=== PATIENT | female | born 1995 | race Caucasian/White ===

== ENCOUNTER 2021-02-26 22:08 | Emergency (ER) | payer BC ==
[2021-02-26] MEDS ORDERED: Ondansetron 4 MG Tab.DIS PO ONE (22:47)
[2021-02-26] MEDS ORDERED: Acetaminophen 325 MG Tab PO ONE (22:50)
--- NOTE | 2021-02-26 22:50 | EDM.PDOC ---
ED HPI GENERAL MEDICAL PROBLEM - General Chief Complaint: Fever Stated Complaint: SECOND COVID VACCINE, HIGH FEVER Time Seen by Provider: 02/26/21 22:38 Source of Information: Reports: Patient History Limitations: Reports: No Limitations - History of Present Illness INITIAL COMMENTS - FREE TEXT/NARRATIVE: Patient is a 25-year-old female who presents today for fever. Patient dates that she received her second call vaccine Materna yesterday and since that time she has had chills intermittently homeless right 105. Simply he was hunting 1 patient not take any Tylenol Motrin before arrival. Patient also reported some nausea but denies any actual vomiting is able to keep water down. Patient denies any chest pain abdominal pain urinary symptoms or other complaints. - Related Data Allergies Allergy/AdvReac Type Severity Reaction Status Date / Time Penicillins Allergy Unknown Other Verified 10/17/15 14:25 Home Meds: Home Meds Doxycycline [Vibramycin] tab PO DAILY 10/17/15 [History] Past Medical History - Past Surgical History HEENT Surgical History: Reports: Adenoidectomy, Naso-Sinus Surgery, Tonsillectomy Musculoskeletal Surgical History: Reports: Other (See Below) ED ROS GENERAL - Review of Systems Review Of Systems: See Below Constitutional: Reports: Fever HEENT: Reports: No Symptoms Respiratory: Reports: No Symptoms Cardiovascular: Reports: No Symptoms Endocrine: Reports: No Symptoms GI/Abdominal: Reports: No Symptoms : Reports: No Symptoms Musculoskeletal: Reports: No Symptoms Skin: Reports: No Symptoms Neurological: Reports: No Symptoms Psychiatric: Reports: No Symptoms Hematologic/Lymphatic: Reports: No Symptoms Immunologic: Reports: No Symptoms ED EXAM, GENERAL - Physical Exam Exam: See Below Exam Limited By: No Limitations General Appearance: Alert, WD/WN, No Apparent Distress Respiratory/Chest: No Respiratory Distress, Lungs Clear, Normal Breath Sounds Cardiovascular: Normal Peripheral Pulses, Regular Rate, Rhythm GI/Abdominal: Normal Bowel Sounds, Soft, Non-Tender Extremities: Normal Inspection, Normal Range of Motion Neurological: Alert, Oriented, CN II-XII Intact, Normal Cognition, Normal Gait Skin Exam: Warm Course - Vital Signs Last Recorded V/S: Last Vital Signs Temp 99.5 F 02/27/21 00:23 Pulse 90 02/27/21 00:23 Resp 18 02/27/21 00:23 BP 116/76 02/27/21 00:23 Pulse Ox 97 02/27/21 00:23 - Orders/Labs/Meds Labs: Laboratory Tests 02/26/21 02/26/21 02/26/21 Range/Units 22:58 22:58 22:58 WBC 4.11 (4.0-11.0) K/uL RBC 4.32 (4.30-5.90) M/uL Hgb 13.7 (12.0-16.0) g/dL Hct 40.1 (36.0-46.0) % MCV 92.8 (80.0-98.0) fL MCH 31.7 (27.0-32.0) pg MCHC 34.2 (31.0-37.0) g/dL RDW Std Deviation 42.7 (28.0-62.0) fl RDW Coeff of Taj 13 (11.0-15.0) % Plt Count 214 (150-400) K/uL MPV 10.30 (7.40-12.00) fL Neut % (Auto) 55.2 (48.0-80.0) % Lymph % (Auto) 29.4 (16.0-40.0) % Faulk % (Auto) 14.4 (0.0-15.0) % Eos % (Auto) 0.5 (0.0-7.0) % Baso % (Auto) 0.5 (0.0-1.5) % Neut # (Auto) 2.3 (1.4-5.7) K/uL Lymph # (Auto) 1.2 (0.6-2.4) K/uL Faulk # (Auto) 0.6 (0.0-0.8) K/uL Eos # (Auto) 0.0 (0.0-0.7) K/uL Baso # (Auto) 0.0 (0.0-0.1) K/uL Nucleated RBC % 0.0 /100WBC Nucleated RBCs # 0 K/uL Sodium 138 (136-145) mmol/L Potassium 3.7 (3.5-5.1) mmol/L Chloride 104 (98-107) mmol/L Carbon Dioxide 25.1 (21.0-32.0) mmol/L BUN 7 (7.0-18.0) mg/dL Creatinine 0.8 (0.6-1.0) mg/dL Est Cr Clr Drug Dosing 105.45 mL/min Estimated GFR (MDRD) > 60.0 ml/min Glucose 116 H (74-106) mg/dL Calcium 8.5 (8.5-10.1) mg/dL HCG, Qual NEGATIVE (NEG) Urine Color Urine Appearance Urine pH (5.0-8.0) Ur Specific [place] (1.001-1.035) Urine Protein (NEGATIVE) mg/dL Urine Glucose (UA) (NEGATIVE) mg/dL Urine Ketones (NEGATIVE) mg/dL Urine Occult Blood (NEGATIVE) Urine Nitrite (NEGATIVE) Urine Bilirubin (NEGATIVE) Urine Urobilinogen (<2.0) EU/dL Ur Leukocyte Esterase (NEGATIVE) Urine RBC (0-2/HPF) Urine WBC (0-5/HPF) Ur Epithelial Cells (NONE-FEW) Urine Bacteria (NEGATIVE) 02/26/21 Range/Units 22:59 WBC (4.0-11.0) K/uL RBC (4.30-5.90) M/uL Hgb (12.0-16.0) g/dL Hct (36.0-46.0) % MCV (80.0-98.0) fL MCH (27.0-32.0) pg MCHC (31.0-37.0) g/dL RDW Std Deviation (28.0-62.0) fl RDW Coeff of Taj (11.0-15.0) % Plt Count (150-400) K/uL MPV (7.40-12.00) fL Neut % (Auto) (48.0-80.0) % Lymph % (Auto) (16.0-40.0) % Faulk % (Auto) (0.0-15.0) % Eos % (Auto) (0.0-7.0) % Baso % (Auto) (0.0-1.5) % Neut # (Auto) (1.4-5.7) K/uL Lymph # (Auto) (0.6-2.4) K/uL Faulk # (Auto) (0.0-0.8) K/uL Eos # (Auto) (0.0-0.7) K/uL Baso # (Auto) (0.0-0.1) K/uL Nucleated RBC % /100WBC Nucleated RBCs # K/uL Sodium (136-145) mmol/L Potassium (3.5-5.1) mmol/L Chloride (98-107) mmol/L Carbon Dioxide (21.0-32.0) mmol/L BUN (7.0-18.0) mg/dL Creatinine (0.6-1.0) mg/dL Est Cr Clr Drug Dosing mL/min Estimated GFR (MDRD) ml/min Glucose (74-106) mg/dL Calcium (8.5-10.1) mg/dL HCG, Qual (NEG) Urine Color YELLOW Urine Appearance SLT CLOUDY Urine pH 7.5 (5.0-8.0) Ur Specific [place] 1.015 (1.001-1.035) Urine Protein NEGATIVE (NEGATIVE) mg/dL Urine Glucose (UA) NEGATIVE (NEGATIVE) mg/dL Urine Ketones NEGATIVE (NEGATIVE) mg/dL Urine Occult Blood LARGE H (NEGATIVE) Urine Nitrite NEGATIVE (NEGATIVE) Urine Bilirubin NEGATIVE (NEGATIVE) Urine Urobilinogen 0.2 (<2.0) EU/dL Ur Leukocyte Esterase NEGATIVE (NEGATIVE) Urine RBC 55-60 (0-2/HPF) Urine WBC 0-1 (0-5/HPF) Ur Epithelial Cells FEW (NONE-FEW) Urine Bacteria RARE (NEGATIVE) Meds: Medications Discontinued Medications Generic Name Dose Route Start Last Admin Trade Name Lacy PRN Reason Stop Dose Admin Acetaminophen 650 mg 02/26/21 22:50 02/26/21 22:57 Acetaminophen 325 Mg Tab PO 02/26/21 22:51 650 mg NOW ONE Administration Ondansetron HCl 4 mg 02/26/21 22:47 02/26/21 22:58 Ondansetron 4 Mg Tab.Dis PO 02/26/21 22:48 4 mg ONETIME ONE Administration - Re-Assessments/Exams Free Text/Narrative Re-Assessment/Exam: 02/27/21 00:15 Patient UA review shows no infection. Patient and x-ray does not show anything obvious large pneumonia. The Internet is down and images cannot be sent to the radiologist for reading. Patient understands this and we will call if there is any concerning findings on the CT. Departure - Departure Time of Disposition: 00:16 Disposition: Home, Self-Care 01 Condition: Good Clinical Impression: Viral illness - Discharge Information *PRESCRIPTION DRUG MONITORING PROGRAM REVIEWED*: Not Applicable *COPY OF PRESCRIPTION DRUG MONITORING REPORT IN PATIENT SAUL: Not Applicable Instructions: Viral Illness, Adult, Fever, Adult, [id number] Referrals: Teresa Lr NP [Primary Care Provider] - Forms: ED Department Discharge Additional Instructions: The following information is given to patients seen in the emergency department who are being discharged to home. This information is to outline your options for follow-up care. We provide all patients seen in our emergency department with a follow-up referral. The need for follow-up, as well as the timing and circumstances, are variable depending upon the specifics of your emergency department visit. If you don't have a primary care physician on staff, we will provide you with a referral. We always advise you to contact your personal physician following an emergency department visit to inform them of the circumstance of the visit and for follow-up with them and/or the need for any referrals to a consulting specialist. The emergency department will also refer you to a specialist when appropriate. This referral assures that you have the opportunity for follow-up care with a specialist. All of these measure are taken in an effort to provide you with optimal care, which includes your follow-up. Under all circumstances we always encourage you to contact your private physician who remains a resource for coordinating your care. When calling for follow-up care, please make the office aware that this follow-up is from your recent emergency room visit. If for any reason you are refused follow-up, please contact the [facility] Emergency Department at and asked to speak to the emergency department charge nurse. Please follow up with your primary care physician. If you do not have a primary care physician, see below: [facility] [address] [place] [id number] [facility] [address] [place] [id number] He was seen today for fever at the regular vaccine. We did a work-up and did not show any findings to what your fever may be caused by. Fever is likely related to a virus that should improve on his own. Recommend you stay home stay hydrated drink lots of fluids and take Tylenol as needed for your fever. You have any other concerning signs or symptoms or did not improve in the next 3 to 5 days please return to ED. Sepsis Event Note (ED) - Evaluation Sepsis Screening Result: Possible Sepsis Risk - Focused Exam Vital Signs: Vital Signs Temp Temp Pulse Resp BP Pulse Ox 02/27/21 00:23 99.5 F 90 18 116/76 97 02/26/21 22:57 101 F H 02/26/21 22:30 101.1 F H 97 14 132/86 100 - Assessment/Plan Plan: Patient is a 25-year-old female who presents today for fever and nausea. Patient had a recent Covid vaccine. Patient has no source of fever. Will obtain x-ray labs and UA and reassess.
[2021-02-26 23:17] LABS: BLOOD UREA NITROGEN,BUN 7 mg/dL (7.0-18.0); CARBON DIOXIDE,CO2 25.1 mmol/L (21.0-32.0); CHLORIDE,CL 104 mmol/L (98-107); GLUCOSE RANDOM 116 mg/dL (74-106); POTASSIUM,K 3.7 mmol/L (3.5-5.1); SODIUM,NA 138 mmol/L (136-145)
[2021-02-27 00:24] VITALS: BP 116/76; PULSE 90
--- NOTE | 2021-02-27 00:32 | CR ---
INDICATION: Fever status post COVID-19 vaccination TECHNIQUE: Chest radiograph 1 view COMPARISON: 08/18/2015 FINDINGS: Mediastinum: The mediastinum is normal in appearance. The heart silhouette is normal in size and morphology. Lung: Both lungs are unremarkable in appearance. No sign of pleural effusion seen. No pneumothorax is identified. Bone and Soft tissue: Unremarkable for age. IMPRESSION: 1. No acute cardiopulmonary disease is seen. Dictated by: Stanford Foss MD @ 02/27/2021 00:31:33 (Electronically Signed)
== END 2021-02-27 00:25 | disposition home or self-care (01) ==
LOC: MW.ED 22:08
DX: B34.9 Viral infection, unspecified (principal)
CPT/HCPCS: 36415; 71045; 80048; 81001; 84703; 85025; 99283; A9270

== ENCOUNTER 2021-10-11 11:30 | Emergency (ER) | payer BC ==
[2021-10-11] MEDS ORDERED: Ondansetron 4 MG/2 ML SDV IVPUSH ONE (11:48)
[2021-10-11] MEDS ORDERED: Sodium Chloride 0.9% 1,000 ML IV ONE (11:48)
[2021-10-11 12:23] LABS: BLOOD UREA NITROGEN,BUN 5 mg/dL (7.0-18.0); CARBON DIOXIDE,CO2 23.4 mmol/L (21.0-32.0); CHLORIDE,CL 100 mmol/L (98-107); GLUCOSE RANDOM 95 mg/dL (74-106); SODIUM,NA 136 mmol/L (136-145)
--- NOTE | 2021-10-11 12:39 | EDM.PDOC ---
ED HPI GENERAL MEDICAL PROBLEM - General Chief Complaint: [employer]ENTICE Problem Stated Complaint: VOMITING,13 WKS Time Seen by Provider: 10/11/21 11:35 Source of Information: Reports: Patient History Limitations: Reports: No Limitations - History of Present Illness INITIAL COMMENTS - FREE TEXT/NARRATIVE: HISTORY AND PHYSICAL: History of present illness: Patient is a 25-year-old female who presents to the ED today with concerns of nausea and vomiting in . She is 13 weeks , , P:[address] Nagel being her OBGYN. She states she does have Zofran at home which she uses frequently, although did not seem to work today. She did call the [employer] hotline and they recommended she come to the emergency room for IV fluids. Patient denies any related concerns such as vaginal bleeding or cramping. Patient has had a confirmed IUP with ultrasound. Patient denies any fever, chills, headache, change in vision, syncope or near syncope. Denies any chest pain, back pain, shortness of breath or cough. Denies any abdominal pain, diarrhea, constipation or dysuria. Has not noted any blood in urine or stool. Patient has been eating and drinking appropriately. No recent travel or sick contacts. Review of systems: As per history of present illness and below otherwise all systems reviewed and negative. Past medical history: As per history of present illness and as reviewed below otherwise noncontributory. Surgical history: As per history of present illness and as reviewed below otherwise noncontributory. Social history: See social history for further information Family history: As per history of present illness and as reviewed below otherwise noncontributory. Physical exam: General: Well developed and well nourished. Alert and orientated x 3. Nontoxic in appearance and in no acute distress. Vital signs are stable and have been reviewed by me. Nursing notes were reviewed. HEENT: Atraumatic, normocephalic, pupils equal and reactive bilaterally, negative for conjunctival pallor or scleral icterus, mucous membranes moist, TMs normal bilaterally, throat clear, neck supple, nontender, trachea midline. No drooling or trismus noted. No meningeal signs. No hot potato voice noted. Lungs: Clear to auscultation bilaterally. No wheezes, rales, or rhonchi. Chest nontender. Normal work of breathing, no accessory muscles used. Heart: S1S2, regular rate and rhythm without overt murmur, gallops, or rubs. No JVD. No peripheral edema Abdomen: Soft, nondistended, nontender. Normoactive bowel sounds. Negative for masses or costovertebral tenderness. Skin: Intact, warm, dry. No lesions or rashes noted. Hematologic: No petechiae or purpra. Mucosa appropriate color and normal nail bed color and refill. Extremities: Atraumatic, moves all extremities per self without difficulty or deficits, negative for cords or calf pain. Neurovascular unremarkable. Neuro: Awake, alert, oriented. Cranial nerves II through XII unremarkable. Cerebellum unremarkable. Motor and sensory unremarkable throughout. Exam nonfocal. Psychiatric: Mood and affect are appropriate. Normal thought process. Answering questions appropriately. Please note that the patient was seen and evaluated during the 2019 SARS-CoV-2 novel coronavirus pandemic period. Community viral transmission is ongoing at time of this encounter and the emergency department is operating under pandemic response procedures. Medical Decision Making: Patient is a 25-year-old female who is 13 weeks gestation with concerns of nausea and vomiting in . She states she does have Zofran at home although did not seem to work today. She did call the [employer] hotline and they recommended she come to the emergency room for IV fluids. Patient denies any related concerns such as vaginal bleeding or cramping. We will do basic lab work and give her fluids with Zofran. If the Zofran is not helping we we will call VARNISHER APPRENTICE for their recommendations. Patient does have some bacteria in her urine we will treat with antibiotics. Spoke with Dr. Stevenson, VARNISHER APPRENTICE on-call for [facility] who states she did talk to the patient earlier today. We will give her a few Phenergan suppositories for home to have on hand in case the nausea and vomiting should return. She does have Zofran available to her as well which had worked well in the past. I have talked with the patient about today's findings, in addition to providing specific details for plan of care. Reassessment at the time of disposition demonstrates that the patient is in no acute distress. The patient is stable for discharge, counseling was provided and we discussed in great detail signs and symptoms that would prompt them to return to the Emergency Department. Medication, follow up and supportive care measures were reviewed and discussed. Voices understanding and is agreeable to plan of care. Denies any further questions or concerns at this time. Diagnostics: CBC, CMP, UA Therapeutics: IV fluid, Zofran Prescription: None Impression: Nausea and vomiting in Plan: 1. You were evaluated today on an emergent basis. Your urine shows an early UTI. Increase fluids and take medication as prescribed. 2. You can alternate Tylenol as needed for pain and fever management. Zofran and/or Phenergan rectal suppository as needed for nausea. 3. We encourage you to follow up with your OBGYN for re-evaluation and further care/management. 4. If your symptoms should worsen, new symptoms develop or any of the signs and symptoms we discussed should arise please return to the emergency room or call 911 (if needed). Definitive disposition and diagnosis as appropriate pending reevaluation and review of above. - Related Data Allergies Allergy/AdvReac Type Severity Reaction Status Date / Time Penicillins Allergy Unknown Other Verified 10/11/21 11:43 Home Meds: Home Meds Promethazine [Phenergan] 25 mg RECTAL Q6H PRN #8 supp.rect 10/11/21 [Rx] cephALEXin [Keflex] 500 mg PO BID 5 Days #10 cap 10/11/21 [Rx] Past Medical History - Past Surgical History HEENT Surgical History: Reports: Adenoidectomy, Naso-Sinus Surgery, Tonsillectomy Musculoskeletal Surgical History: Reports: Other (See Below) Other Musculoskeletal Surgeries/Procedures:: bilateral knee reconstruction, right flat foot reconstruction, left foot reconstruction. Social & Family History - Family History Family Medical History: No Pertinent Family History - Tobacco Use Tobacco Use Status *Q: Never Tobacco User - Caffeine Use Caffeine Use: Reports: Soda - Recreational Drug Use Recreational Drug Use: No ED ROS GENERAL - Review of Systems Review Of Systems: Comprehensive ROS is negative, except as noted in HPI. ED EXAM - Physical Exam Exam: See Below (See dictation) Course - Vital Signs Last Recorded V/S: Last Vital Signs Temp 96.7 F L 10/11/21 11:44 Pulse 76 10/11/21 14:02 Resp 16 10/11/21 11:44 BP 113/59 L 10/11/21 14:02 Pulse Ox 96 10/11/21 11:44 - Orders/Labs/Meds Orders: Active Orders 24 hr Category Date Time Status CULTURE URINE [MREF] Stat Lab 10/11/21 13:28 Received Labs: Laboratory Tests 10/11/21 10/11/21 10/11/21 Range/Units 11:48 11:48 13:28 WBC 9.64 (4.0-11.0) K/uL RBC 4.27 L (4.30-5.90) M/uL Hgb 13.5 (12.0-16.0) g/dL Hct 38.9 (36.0-46.0) % MCV 91.1 (80.0-98.0) fL MCH 31.6 (27.0-32.0) pg MCHC 34.7 (31.0-37.0) g/dL RDW Std Deviation 42.9 (28.0-62.0) fl RDW Coeff of Taj 13 (11.0-15.0) % Plt Count 237 (150-400) K/uL MPV 10.40 (7.40-12.00) fL Neut % (Auto) 84.4 H (48.0-80.0) % Lymph % (Auto) 8.8 L (16.0-40.0) % Sawyer % (Auto) 6.4 (0.0-15.0) % Eos % (Auto) 0.2 (0.0-7.0) % Baso % (Auto) 0.2 (0.0-1.5) % Neut # (Auto) 8.1 H (1.4-5.7) K/uL Lymph # (Auto) 0.9 (0.6-2.4) K/uL Sawyer # (Auto) 0.6 (0.0-0.8) K/uL Eos # (Auto) 0.0 (0.0-0.7) K/uL Baso # (Auto) 0.0 (0.0-0.1) K/uL Nucleated RBC % 0.0 /100WBC Nucleated RBCs # 0 K/uL Sodium 136 (136-145) mmol/L Potassium 4.0 (3.5-5.1) mmol/L Chloride 100 (98-107) mmol/L Carbon Dioxide 23.4 (21.0-32.0) mmol/L BUN 5 L (7.0-18.0) mg/dL Creatinine 0.6 (0.6-1.0) mg/dL Est Cr Clr Drug Dosing 140.60 mL/min Estimated GFR (MDRD) > 60.0 ml/min Glucose 95 (74-106) mg/dL Calcium 9.0 (8.5-10.1) mg/dL Total Bilirubin 0.7 (0.2-1.0) mg/dL AST 19 (15-37) IU/L ALT 29 (14-63) IU/L Alkaline Phosphatase 77 (46-116) U/L Total Protein 7.4 (6.4-8.2) g/dL Albumin 3.8 (3.4-5.0) g/dL Globulin 3.6 (2.6-4.0) g/dL Albumin/Globulin Ratio 1.1 (0.9-1.6) Urine Color YELLOW Urine Appearance CLEAR Urine pH 6.5 (5.0-8.0) Ur Specific [place] 1.015 (1.001-1.035) Urine Protein NEGATIVE (NEGATIVE) mg/dL Urine Glucose (UA) NEGATIVE (NEGATIVE) mg/dL Urine Ketones 40 H (NEGATIVE) mg/dL Urine Occult Blood NEGATIVE (NEGATIVE) Urine Nitrite NEGATIVE (NEGATIVE) Urine Bilirubin NEGATIVE (NEGATIVE) Urine Urobilinogen 0.2 (<2.0) EU/dL Ur Leukocyte Esterase MODERATE H (NEGATIVE) Urine RBC NONE SEEN (0-2/HPF) Urine WBC 5-10 (0-5/HPF) Ur Epithelial Cells FEW (NONE-FEW) Urine Bacteria 1+ H (NEGATIVE) Meds: Medications Discontinued Medications Generic Name Dose Route Start Last Admin Trade Name Lacy PRN Reason Stop Dose Admin Sodium Chloride 1,000 mls @ 999 mls/hr 10/11/21 11:48 10/11/21 12:00 Normal Saline IV 10/11/21 12:48 999 mls/hr STAT ONE Administration Ondansetron HCl 4 mg 10/11/21 11:48 10/11/21 12:01 Ondansetron 4 Mg/2 Ml Sdv IVPUSH 10/11/21 11:49 4 mg ONETIME ONE Administration Departure - Departure Time of Disposition: 13:48 Disposition: Home, Self-Care 01 Clinical Impression: Nausea and vomiting in UTI in Qualifiers: Trimester: second trimester Qualified Code(s): O23.42 - Unspecified infection of urinary tract in , second trimester - Discharge Information Prescriptions: cephALEXin [Keflex] 500 mg PO BID 5 Days #10 cap Promethazine [Phenergan] 25 mg RECTAL Q6H PRN #8 supp.rect PRN Reason: Nausea/Vomiting Instructions: Urinary Tract Infection, Adult, [id number] Referrals: Marquita Nagel MD [Primary Care Provider] - Forms: ED Department Discharge Additional Instructions: The following information is given to patients seen in the emergency department who are being discharged to home. This information is to outline your options for follow-up care. We provide all patients seen in our emergency department with a follow-up referral. The need for follow-up, as well as the timing and circumstances, are variable depending upon the specifics of your emergency department visit. If you don't have a primary care physician on staff, we will provide you with a referral. We always advise you to contact your personal physician following an emergency department visit to inform them of the circumstance of the visit and for follow-up with them and/or the need for any referrals to a consulting sp ecialist. The emergency department will also refer you to a specialist when appropriate. This referral assures that you have the opportunity for follow-up care with a specialist. All of these measure are taken in an effort to provide you with optimal care, which includes your follow-up. Under all circumstances we always encourage you to contact your private physician who remains a resource for coordinating your care. When calling for follow-up care, please make the office aware that this follow-up is from your recent emergency room visit. If for any reason you are refused follow-up, please contact the [facility] Emergency Department at and asked to speak to the emergency department charge nurse. [facility] [address] [place] [id number] [facility] [address] [place] [phone] Thank you for choosing the [facility] emergency department in [place] for your medical needs today. It was a pleasure caring for you. Today you were seen in the emergency department for nausea and vomiting in Your prescription was electronically sent to: [place] pharmacy Medication/Directions:Phenergan suppository for nausea management. Keflex for UTI. 1. You were evaluated today on an emergent basis. Your urine shows an early UTI. Increase fluids and take medication as prescribed. 2. You can alternate Tylenol as needed for pain and fever management. Zofran and/or Phenergan rectal suppository as needed for nausea. 3. We encourage you to follow up with your OBGYN for re-evaluation and further care/management. 4. If your symptoms should worsen, new symptoms develop or any of the signs and symptoms we discussed should arise please return to the emergency room or call 911 (if needed). Sepsis Event Note (ED) - Evaluation Sepsis Screening Result: No Definite Risk - Focused Exam Vital Signs: Vital Signs Temp Pulse Resp BP Pulse Ox 10/11/21 14:02 76 113/59 L 10/11/21 11:44 96.7 F L 96 16 147/69 H 96 - My Orders Last 24 Hours: My Active Orders 10/11/21 13:28 CULTURE URINE [MREF] Stat - Assessment/Plan Last 24 Hours: My Active Orders 10/11/21 13:28 CULTURE URINE [MREF] Stat
[2021-10-11 14:02] VITALS: BP 113/59; PULSE 76
== END 2021-10-11 14:04 | disposition home or self-care (01) ==
LOC: MW.ED 11:30
DX: O21.9 Vomiting of pregnancy, unspecified (principal); O23.41 Unspecified infection of urinary tract in pregnancy, first trimester; Z88.0 Allergy status to penicillin; Z3A.13 13 weeks gestation of pregnancy
CPT/HCPCS: 36415; 80053; 81001; 85025; 87086; 96374; 99284; J2405; J7030

== ENCOUNTER 2021-10-12 10:10 | Emergency (ER) | payer BC ==
[2021-10-12 10:22] VITALS: BP 97/62; PULSE 137
[2021-10-12] MEDS ORDERED: Promethazine 25 MG/ML SDV IM ONE (10:45)
--- NOTE | 2021-10-12 10:46 | EDM.PDOC ---
ED HPI GENERAL MEDICAL PROBLEM - General Chief Complaint: General Stated Complaint: BODY ACHES VOMITING Time Seen by Provider: 10/12/21 10:22 - History of Present Illness INITIAL COMMENTS - FREE TEXT/NARRATIVE: History of present illness: [] The patient is here because he is vomiting and has body aches all over. She was here yesterday with vomiting. She was prescribed Phenergan suppositories in consultation with the doctor on-call for Dr. Nagel her OB doctor. She is 13 weeks . She is vaccinated for Covid but now she has fever and body aches. She is vomiting everything again. Yesterday she received a prescription for Phenergan suppositories but she was not nauseated after she left here until today. She has not tried to suppositories. Review of systems: As per history of present illness and below otherwise all systems reviewed and negative. Past medical history: As per history of present illness and as reviewed below otherwise noncontributory. Surgical history: As per history of present illness and as reviewed below otherwise noncontributory. Social history: No reported history of drug or alcohol abuse. Family history: As per history of present illness and as reviewed below otherwise noncon tributory. Physical exam: Constitutional - well developed, well-nourished and in no acute distress HEENT - normocephalic, no evidence of trauma - external nose and mouth normal - no mass in neck and no JVD - mucosae moist EYES - full EOM, PERRL, no icterus - no evidence of inflammation, injection, or drainage Respiratory - no respiratory distress, equal bilateral expansion, lungs clear to auscultation and no abnormal lung sounds Cardiovascular - Regular Rhythm with S1 and S2 appreciated and no murmur, gallop or rub. GI -gravid uterus-abdomen soft without distension or organomegaly - normal bowel sounds - no guard or rebound Musculoskeletal no gross deformity of long bones or joints - no tenderness, swelling or edema Neurologic - Alert and oriented times four - CN II-XII grossly intact - motor sensory and coordination symmetrically normal Psychiatric - appropriate mood and affect with normal thought content Hematologic - No petechiae or purpura - mucosa appropriate color and sclera not pale - normal nail bed color and refill Integument - no rash or evidence of trauma - normal turgor Diagnostics: [] Therapeutics: [] Impression: [] Plan: [] Definitive disposition and diagnosis as appropriate pending reevaluation and review of above. general pain Pain Score (Numeric/FACES): 6 - Related Data Allergies Allergy/AdvReac Type Severity Reaction Status Date / Time Penicillins Allergy Unknown Other Verified 10/11/21 11:43 Home Meds: Home Meds Promethazine [Phenergan] 25 mg RECTAL Q6H PRN #8 supp.rect 10/11/21 [Rx] cephALEXin [Keflex] 500 mg PO BID 5 Days #10 cap 10/11/21 [Rx] Oseltamivir [Tamiflu] 75 mg PO BID 5 Days #10 cap 10/12/21 [Rx] Past Medical History - Past Surgical History HEENT Surgical History: Reports: Adenoidectomy, Naso-Sinus Surgery, Tonsillectomy Musculoskeletal Surgical History: Reports: Other (See Below) Other Musculoskeletal Surgeries/Procedures:: bilateral knee reconstruction, right flat foot reconstruction, left foot reconstruction. Social & Family History - Family History Family Medical History: No Pertinent Family History - Caffeine Use Caffeine Use: Reports: Soda ED ROS GENERAL - Review of Systems Review Of Systems: Comprehensive ROS is negative, except as noted in HPI. ED EXAM, GENERAL - Physical Exam Exam: See Below Free Text/Narrative:: My physical exam is in the HPI Course - Vital Signs Last Recorded V/S: Last Vital Signs Temp 38.2 C H 10/12/21 10:19 Pulse 137 H 10/12/21 10:19 Resp 18 10/12/21 10:19 BP 97/62 10/12/21 10:19 Pulse Ox 99 10/12/21 10:19 - Orders/Labs/Meds Orders: Active Orders 24 hr Category Date Time Status Heart Tones [RC] ASDIRECTED Care 10/12/21 10:45 Active Sodium Chloride 0.9% [Normal Saline] 1,000 ml Med 10/12/21 11:03 Active IV .Bolus Sodium Chloride 0.9% [Saline Flush] Med 10/12/21 11:03 Active 10 ml FLUSH ASDIRECTED PRN Sodium Chloride 0.9% [Saline Flush] Med 10/12/21 11:03 Active 2.5 ml FLUSH ASDIRECTED PRN Saline Lock Insert [OM.PC] Stat Oth 10/12/21 11:03 Ordered Medication Orders Sodium Chloride (Normal Saline) 1,000 mls @ 999 mls/hr IV .Bolus ONE Stop: 10/12/21 12:03 Last Admin: 10/12/21 11:23 Dose: 999 mls/hr Documented by: YI Sodium Chloride (Sodium Chloride 0.9% 10 Ml Syringe) 10 ml FLUSH ASDIRECTED PRN PRN Reason: Keep Vein Open Last Admin: 10/12/21 11:23 Dose: 10 ml Documented by: YI Sodium Chloride (Sodium Chloride 0.9% 2.5 Ml Syringe) 2.5 ml FLUSH ASDIRECTED PRN PRN Reason: Keep Vein Open Last Admin: 10/12/21 11:23 Dose: 2.5 ml Documented by: YI Labs: Laboratory Tests 10/12/21 10/12/21 10/12/21 Range/Units 10:22 10:22 10:22 WBC 4.56 (4.0-11.0) K/uL RBC 4.19 L (4.30-5.90) M/uL Hgb 13.2 (12.0-16.0) g/dL Hct 38.4 (36.0-46.0) % MCV 91.6 (80.0-98.0) fL MCH 31.5 (27.0-32.0) pg MCHC 34.4 (31.0-37.0) g/dL RDW Std Deviation 44.0 (28.0-62.0) fl RDW Coeff of Taj 13 (11.0-15.0) % Plt Count 206 (150-400) K/uL MPV 10.70 (7.40-12.00) fL Neut % (Auto) 87.5 H (48.0-80.0) % Lymph % (Auto) 6.8 L (16.0-40.0) % Faulk % (Auto) 5.5 (0.0-15.0) % Eos % (Auto) 0.0 (0.0-7.0) % Baso % (Auto) 0.2 (0.0-1.5) % Neut # (Auto) 4.0 (1.4-5.7) K/uL Lymph # (Auto) 0.3 L (0.6-2.4) K/uL Faulk # (Auto) 0.3 (0.0-0.8) K/uL Eos # (Auto) 0.0 (0.0-0.7) K/uL Baso # (Auto) 0.0 (0.0-0.1) K/uL Nucleated RBC % 0.0 /100WBC Nucleated RBCs # 0 K/uL Sodium 133 L (136-145) mmol/L Potassium 3.5 (3.5-5.1) mmol/L Chloride 98 (98-107) mmol/L Carbon Dioxide 22.5 (21.0-32.0) mmol/L BUN 6 L (7.0-18.0) mg/dL Creatinine 0.7 (0.6-1.0) mg/dL Est Cr Clr Drug Dosing 120.51 mL/min Estimated GFR (MDRD) > 60.0 ml/min Glucose 98 (74-106) mg/dL Calcium 9.3 (8.5-10.1) mg/dL Total Bilirubin 0.4 (0.2-1.0) mg/dL AST 21 (15-37) IU/L ALT 27 (14-63) IU/L Alkaline Phosphatase 84 (46-116) U/L Total Protein 7.4 (6.4-8.2) g/dL Albumin 3.7 (3.4-5.0) g/dL Globulin 3.7 (2.6-4.0) g/dL Albumin/Globulin Ratio 1.0 (0.9-1.6) Influenza Type A RNA POSITIVE H (NEGATIVE) Influenza Type B RNA NEGATIVE (NEGATIVE) SARS-CoV-2 RNA (DEBORAH) POSITIVE H (NEGATIVE) Meds: Medications Generic Name Dose Route Start Last Admin Trade Name Freq PRN Reason Stop Dose Admin Sodium Chloride 1,000 mls @ 999 mls/hr 10/12/21 11:03 10/12/21 11:23 Normal Saline IV 10/12/21 12:03 999 mls/hr .Bolus ONE Administration Sodium Chloride 10 ml 10/12/21 11:10/12/21 11:23 Sodium Chloride 0.9% 10 Ml Syringe FLUSH 10 ml ASDIRECTED PRN Administration Keep Vein Open Sodium Chloride 2.5 ml 10/12/21 11:03 10/12/21 11:23 Sodium Chloride 0.9% 2.5 Ml Syringe FLUSH 2.5 ml ASDIRECTED PRN Administration Keep Vein Open Discontinued Medications Generic Name Dose Route Start Last Admin Trade Name Lacy PRN Reason Stop Dose Admin Promethazine HCl 25 mg 10/12/21 10:45 10/12/21 10:53 Promethazine 25 Mg/Ml Sdv IM 10/12/21 10:46 25 mg ONETIME ONE Administration - Re-Assessments/Exams Free Text/Narrative Re-Assessment/Exam: 10/12/21 11:15 Patient has symptoms that suggest viral infection rather than bacterial sepsis. Sepsis work-up was not done because the patient has viral illness. She is positive for Covid and for influenza A. She will be treated for influenza because she is and less than 2 days of symptoms. Departure - Departure Time of Disposition: 11:26 Disposition: Home, Self-Care 01 Clinical Impression: Intrauterine , Vomiting, Influenza A, COVID-19 - Discharge Information Prescriptions: Oseltamivir [Tamiflu] 75 mg PO BID 5 Days #10 cap Instructions: Influenza, Adult, [id number], COVID-19 Vaccine Information, 10 Things You Can Do to Manage Your COVID-19 Symptoms at Home - [facility] (04/18/2021), COVID-19: What to Do If You Are Sick- [facility] (12/18/2020) Referrals: PCP,None [Primary Care Provider] - Forms: ED Department Discharge Additional Instructions: Your prescription for influenza medicine [facility]. They are open noon to 5 today. [facility] - Primary Care [facility] [address] [place] [address] [place] [address] [facility] [address] [place] [id number] [facility] [address] [place] [id number] The following information is given to patients seen in the emergency department who are being discharged to home. This information is to outline your options for follow-up care. We provide all patients seen in our emergency department with a follow-up referral. The need for follow-up, as well as the timing and circumstances, are variable depending upon the specifics of your emergency department visit. If you don't have a primary care physician on staff, we will provide you with a referral. We always advise you to contact your personal physician following an emergency department visit to inform them of the circumstance of the visit and for follow-up with them and/or the need for any referrals to a consulting specialist. The emergency department will also refer you to a specialist when appropriate. This referral assures that you have the opportunity for follow-up care with a specialist. All of these measure are taken in an effort to provide you with optimal care, which includes your follow-up. Under all circumstances we always encourage you to contact your private physician who remains a resource for coordinating your care. When calling for follow-up care, please make the office aware that this follow-up is from your recent emergency room visit. If for any reason you are refused follow-up, please contact the [facility] Emergency Department at and asked to speak to the emergency department charge nurse. Sepsis Event Note (ED) - Focused Exam Vital Signs: Vital Signs Temp Pulse Resp BP Pulse Ox 10/12/21 10:19 38.2 C H 137 H 18 97/62 99 - My Orders Last 24 Hours: My Active Orders 10/12/21 10:45 Heart Tones [RC] ASDIRECTED 10/12/21 11:03 Sodium Chloride 0.9% [Normal Saline] 1,000 ml IV .Bolus Sodium Chloride 0.9% [Saline Flush] 10 ml FLUSH ASDIRECTED PRN Sodium Chloride 0.9% [Saline Flush] 2.5 ml FLUSH ASDIRECTED PRN Saline Lock Insert [OM.PC] Stat - Assessment/Plan Last 24 Hours: My Active Orders 10/12/21 10:45 Heart Tones [RC] ASDIRECTED 10/12/21 11:03 Sodium Chloride 0.9% [Normal Saline] 1,000 ml IV .Bolus Sodium Chloride 0.9% [Saline Flush] 10 ml FLUSH ASDIRECTED PRN Sodium Chloride 0.9% [Saline Flush] 2.5 ml FLUSH ASDIRECTED PRN Saline Lock Insert [OM.PC] Stat
[2021-10-12] MEDS ORDERED: Sodium Chloride 0.9% 10 ML Syringe FLUSH PRN (11:03)
[2021-10-12] MEDS ORDERED: Sodium Chloride 0.9% 2.5 ML Syringe FLUSH PRN (11:03)
[2021-10-12] MEDS ORDERED: Sodium Chloride 0.9% 1,000 ML IV ONE (11:03)
[2021-10-12 11:09] LABS: CORONAVIRUS COVID-19 NAA POSITIVE (NEGATIVE); INFLUENZA A NAA POSITIVE (NEGATIVE); INFLUENZA B NAA NEGATIVE (NEGATIVE)
[2021-10-12 11:19] LABS: BLOOD UREA NITROGEN,BUN 6 mg/dL (7.0-18.0); CARBON DIOXIDE,CO2 22.5 mmol/L (21.0-32.0); CHLORIDE,CL 98 mmol/L (98-107); GLUCOSE RANDOM 98 mg/dL (74-106); POTASSIUM,K 3.5 mmol/L (3.5-5.1); SODIUM,NA 133 mmol/L (136-145)
== END 2021-10-12 12:09 | disposition home or self-care (01) ==
LOC: MW.ED 10:10
DX: O98.511 Other viral diseases complicating pregnancy, first trimester (principal); O21.9 Vomiting of pregnancy, unspecified; U07.1 COVID-19; J10.1 Influenza due to other identified influenza virus with other respiratory manifestations; Z88.0 Allergy status to penicillin; Z20.822 Contact with and (suspected) exposure to COVID-19; Z3A.13 13 weeks gestation of pregnancy
CPT/HCPCS: 0240U; 36415; 80053; 85025; 96372; 99284; J2550; J7030

== ENCOUNTER 2021-12-23 16:54 | Emergency (ER) | payer BC ==
[2021-12-23] MEDS ORDERED: Sodium Chloride 0.9% 1,000 ML IV ONE (18:05)
[2021-12-23 19:32] LABS: BLOOD UREA NITROGEN,BUN 11 mg/dL (7.0-18.0); CARBON DIOXIDE,CO2 24.4 mmol/L (21.0-32.0); CHLORIDE,CL 100 mmol/L (98-107); GLUCOSE RANDOM 88 mg/dL (74-106); POTASSIUM,K 4.1 mmol/L (3.5-5.1); SODIUM,NA 135 mmol/L (136-145)
[2021-12-23] MEDS ORDERED: Iopamidol 755 MG/ML 500 ML Multipack Bottle IVPUSH STA (20:35)
[2021-12-24 02:18] VITALS: BP 117/87; PULSE 88
== END 2021-12-23 21:16 | disposition home or self-care (01) ==
LOC: MW.ED 16:54
DX: O99.512 Diseases of the respiratory system complicating pregnancy, second trimester (principal); R06.02 Shortness of breath; Z88.0 Allergy status to penicillin; Z3A.24 24 weeks gestation of pregnancy
CPT/HCPCS: 36415; 71275; 80053; 81001; 85025; 87086; 99285; J7030; Q9967

== ENCOUNTER 2022-03-24 17:18 | Inpatient (IN) | payer BC ==
[2022-03-24 18:42] LABS: CARBON DIOXIDE,CO2 23.4 mmol/L (21.0-32.0)
[2022-03-24] MEDS ORDERED: Misoprostol 25 MCG (1/4 of 100 MCG) Tab VAG PRN ×2 (20:15)
[2022-03-24] MEDS ORDERED: Lidocaine 1% 50 ML MDV INJECT PRN (20:15)
[2022-03-24] MEDS ORDERED: Sodium Chloride 0.9% 10 ML Syringe FLUSH PRN (20:15)
[2022-03-24] MEDS ORDERED: Labetalol 100 MG/20 ML MDV IVPUSH PRN (20:15)
[2022-03-24] MEDS ORDERED: Oxytocin/0.9 % Sodium Chloride 30 UNIT/500 ML BAG IV SCH ×2 (20:15)
[2022-03-24] MEDS ORDERED: Sodium Chloride 0.9% 20 ML SDV IV PRN (20:15)
[2022-03-24] MEDS ORDERED: Butorphanol 1 MG/ML SDV IVPUSH PRN (20:15)
[2022-03-24] MEDS ORDERED: Sodium Chloride 0.9% 2.5 ML Syringe FLUSH PRN (20:15)
[2022-03-24] MEDS ORDERED: Carboprost Tromethamine 250 MCG/1 ML Amp IM PRN (20:15)
[2022-03-24] MEDS ORDERED: Water For Irrigation,Sterile 1,000 ML Container IRR PRN (20:15)
[2022-03-24] MEDS ORDERED: Terbutaline 1 MG/ML SDV SUBCUT PRN (20:15)
[2022-03-24] MEDS ORDERED: Tranexamic Acid 1,000 MG in Sodium Chloride 0.9% 100 ML IV PRN (20:15)
[2022-03-24] MEDS ORDERED: Methylergonovine 0.2 MG/1 ML Amp IM PRN (20:15)
[2022-03-24] MEDS ORDERED: Misoprostol 200 MCG Tab PO PRN (20:15)
[2022-03-25] MEDS: Ondansetron 4 MG/2 ML SDV IVPUSH PRN ×2 (02:42→08:52)
[2022-03-25] MEDS: Lactated Ringers 1,000 ML IV SCH ×2 (05:21→07:36)
[2022-03-25] MEDS ORDERED: Ropivacaine/PF 400 MG/200 ML PCA ONE (07:07)
[2022-03-25] MEDS ORDERED: ePHEDrine 50 MG/ML SDV IVPUSH PRN (07:23)
[2022-03-25] MEDS ORDERED: Ropivacaine HCl/PF 400 MG in Premix Bag 1 BAG EPIDUR SCH (07:30)
[2022-03-25] MEDS ORDERED: fentaNYL 100 MCG/2 ML SDV ONE (09:16)
[2022-03-25] MEDS ORDERED: oxyCODONE 5 MG Tab PO PRN (10:14)
[2022-03-25] MEDS ORDERED: Bisacodyl 10 MG Supp RECTAL PRN (10:14)
[2022-03-25] MEDS ORDERED: Lanolin 100% Cream 7 GM Tube TOP PRN (10:14)
[2022-03-25] MEDS ORDERED: Acetaminophen 500 MG Tab PO PRN (10:14)
[2022-03-25] MEDS ORDERED: Docusate Sodium 100 MG Cap PO PRN (10:14)
[2022-03-25] MEDS ORDERED: Ibuprofen 400 MG Tab PO PRN (10:14)
[2022-03-25] MEDS: Witch Hazel Medicated Pads 40/Jar TOP PRN (11:03)
[2022-03-25] MEDS: Benzocaine/Menthol 20%-0.5% Spray 78 GM Cannister TOP PRN (11:04)
[2022-03-25] MEDS: Ibuprofen 800 MG Tab PO PRN (13:03)
[2022-03-25] MEDS: Acetaminophen 500 MG Tab PO PRN ×2 (13:03→20:35)
[2022-03-26] MEDS: Ibuprofen 800 MG Tab PO PRN (05:35)
[2022-03-26 06:07] LABS: CARBON DIOXIDE,CO2 25.7 mmol/L (21.0-32.0); POTASSIUM,K 3.9 mmol/L (3.5-5.1)
[2022-03-26] MEDS: Witch Hazel Medicated Pads 40/Jar TOP PRN (18:56)
[2022-03-26] MEDS: Benzocaine/Menthol 20%-0.5% Spray 78 GM Cannister TOP PRN (18:57)
[2022-03-27 08:18] VITALS: BP 133/88; PULSE 80
== END 2022-03-27 10:35 | disposition home or self-care (01) | DRG 560 ==
LOC: MW.OBCHECK 17:18 → MW.OB 17:18 → MW.OBCHECK 20:15 → MW.OB 20:15 → OBSVTOIN 03-25 09:47 → MW.OB 03-25 13:17
PROVIDERS: ADMIT Obstetrics & Gynecology; ATTEND Obstetrics & Gynecology
PROC: 10E0XZZ Delivery of Products of Conception, External Approach (ICD-10-PCS; principal; 2022-03-25)
PROC: 0HQ9XZZ Repair Perineum Skin, External Approach (ICD-10-PCS; 2022-03-25)
PROC: 3E0R3BZ Introduction of Anesthetic Agent into Spinal Canal, Percutaneous Approach (ICD-10-PCS; 2022-03-25)
PROC: 00HU33Z Insertion of Infusion Device into Spinal Canal, Percutaneous Approach (ICD-10-PCS; 2022-03-25)
PROC: 10907ZC Drainage of Amniotic Fluid, Therapeutic from Products of Conception, Via Natural or Artificial Opening (ICD-10-PCS; 2022-03-25)
DX: O13.4 Gestational [pregnancy-induced] hypertension without significant proteinuria, complicating childbirth (principal); Z3A.37 37 weeks gestation of pregnancy; Z37.0 Single live birth; O99.344 Other mental disorders complicating childbirth; O69.81X0 Labor and delivery complicated by cord around neck, without compression, not applicable or unspecified; F41.8 Other specified anxiety disorders; O99.72 Diseases of the skin and subcutaneous tissue complicating childbirth; Q79.69 Other Ehlers-Danlos syndromes; O70.0 First degree perineal laceration during delivery; Z20.822 Contact with and (suspected) exposure to COVID-19; Z86.16 Personal history of COVID-19
CPT/HCPCS: 36415; 51702; 59025; 59409; 80053; 82803; 84550; 85027; 86592; 86850; 86900; 86901; A9270-GY; J0595; J2405; J2590; J2795; J3010; J7120; U0002

== ENCOUNTER 2023-02-15 07:40 | Emergency (ER) | payer BC ==
[2023-02-15 08:17] LABS: BASOPHILS PERCENT AUTO 0.3 % (0.0-1.5); EOSINOPHILS ABSOLUTE AUTO 0.2 K/uL (0.0-0.7); EOSINOPHILS PERCENT AUTO 0.9 % (0.0-7.0); HEMATOCRIT 41.8 % (36.0-46.0); HEMOGLOBIN 14.4 g/dL (12.0-16.0); LYMPHOCYTES ABSOLUTE AUTO 2.1 K/uL (0.6-2.4); LYMPHOCYTES PERCENT AUTO 13.4 % (16.0-40.0); MEAN CORPUSCULAR HEMOGLOBIN 31.8 pg (27.0-32.0); MEAN CORPUSCULAR HGB CONC 34.4 g/dL (31.0-37.0); MEAN CORPUSCULAR VOLUME 92.3 fL (80.0-98.0); MONOCYTES ABSOLUTE AUTO 0.6 K/uL (0.0-0.8); MONOCYTES PERCENT AUTO 3.9 % (0.0-15.0); NEUTROPHILS ABSOLUTE AUTO 12.9 K/uL (1.4-5.7); NEUTROPHILS PERCENT AUTO 81.5 % (48.0-80.0); NRBC ABSOLUTE 0 K/uL; PLATELET COUNT,PLT 266 K/uL (150-400); RED BLOOD CELL COUNT 4.53 M/uL (4.30-5.90); WHITE BLOOD CELL COUNT,WBC 15.84 K/uL (4.0-11.0)
[2023-02-15] MEDS ORDERED: Ondansetron 4 MG/2 ML SDV IVPUSH ONE (08:20)
[2023-02-15] MEDS ORDERED: Lactated Ringers 1,000 ML IV SCH (08:30)
[2023-02-15 08:49] LABS: ALBUMIN 3.7 g/dL (3.4-5.0); BILIRUBIN TOTAL 0.3 mg/dL (0.2-1.0); CALCIUM 8.7 mg/dL (8.5-10.1); CARBON DIOXIDE,CO2 23.4 mmol/L (21.0-32.0); CREATININE 0.9 mg/dL (0.6-1.0); EST CRCL DRUG DOSING (CG) 92.11 mL/min; PROTEIN TOTAL,TP 7.3 g/dL (6.4-8.2)
[2023-02-15 09:31] LABS: APPEARANCE,URINE CLEAR; BILIRUBIN,URINE NEGATIVE (NEGATIVE); COLOR,URINE YELLOW; GLUCOSE,URINE NEGATIVE (NEGATIVE); KETONES,URINE NEGATIVE (NEGATIVE); LEUKOCYTE ESTERASE,URINE NEGATIVE (NEGATIVE); NITRITE,URINE NEGATIVE (NEGATIVE); OCCULT BLOOD,URINE NEGATIVE (NEGATIVE); PH,URINE 5.5 (5.0-8.0); PROTEIN,URINE NEGATIVE (NEGATIVE); UROBILINOGEN,URINE 0.2 EU/dL (<2.0)
[2023-02-15] MEDS ORDERED: Ketorolac 10 MG Tab PO ONE (11:26)
[2023-02-15] MEDS ORDERED: Ondansetron 4 MG Tab.DIS PO ONE (11:26)
[2023-02-15] MEDS ORDERED: oxyCODONE 5 MG Tab PO ONE (11:27)
[2023-02-15 12:50] VITALS: BP 126/79; PULSE 96
== END 2023-02-15 12:24 | disposition home or self-care (01) ==
LOC: MW.ED 07:40
DX: K80.20 Calculus of gallbladder without cholecystitis without obstruction (principal); Z88.0 Allergy status to penicillin; Z79.899 Other long term (current) drug therapy; Z86.16 Personal history of COVID-19
CPT/HCPCS: 36415; 76705; 80053; 81003; 83690; 84703; 85025; 96361; 96374; 99284; A9270; J2405; J7120

== ENCOUNTER 2023-03-10 06:06 | Day surgery (SDC) | payer BC ==
[~2023-03-10 06:06] MED LIST: Acetaminophen 1,000 MG in Premix Bag 1 BAG IV SCH; Lactated Ringers 1,000 ML IV SCH; Pregabalin 75 MG Cap PO SCH; cefOXitin 2 GM in Sodium Chloride 0.9% 50 ML IV SCH
[2023-03-10] MEDS ORDERED: Scopolamine 1.5 MG Transdermal Patch ONE (06:37)
[2023-03-10] MEDS ORDERED: Scopolamine 1.5 MG Transdermal Patch TOP ONE (07:01)
[2023-03-10] MEDS ORDERED: Naloxone 0.4 MG/ML SDV IVPUSH PRN (07:29)
[2023-03-10] MEDS ORDERED: Morphine 2 MG/ML SYRINGE IVPUSH PRN (07:29)
[2023-03-10] MEDS ORDERED: Ondansetron 4 MG/2 ML SDV IVPUSH PRN (07:29)
[2023-03-10] MEDS ORDERED: Metoclopramide 10 MG/2 ML SDV IVPUSH PRN (07:29)
[2023-03-10] MEDS ORDERED: Albuterol 0.083% 2.5 MG/3 ML Neb Soln NEB PRN (07:29)
[2023-03-10] MEDS ORDERED: HYDROmorphone 1 MG/ML Syringe IVPUSH PRN (07:29)
[2023-03-10] MEDS ORDERED: fentaNYL 50 MCG/ML SDV IVPUSH PRN (07:29)
[2023-03-10] MEDS ORDERED: droPERidol 5 MG/2 ML SDV IVPUSH PRN (07:29)
[2023-03-10] MEDS ORDERED: Rocuronium Bromide 50 MG/5 ML Syringe ONE ×2 (07:38→08:51)
[2023-03-10] MEDS ORDERED: Dexamethasone 4 MG/ML 5 ML MDV ONE (07:38)
[2023-03-10] MEDS ORDERED: Lidocaine 2% 5 ML SDV ONE (07:38)
[2023-03-10] MEDS ORDERED: Ketorolac 30 MG/ML SDV ONE (07:38)
[2023-03-10] MEDS ORDERED: Ropivacaine 0.5% 5 MG/ML 30 ML SDV ONE (07:38)
[2023-03-10] MEDS ORDERED: Sugammadex Sodium 200 MG/2 ML VIAL ONE (07:38)
[2023-03-10] MEDS ORDERED: Bupivacaine 25%/EPINEPHrine/PF 30 ML ONE (07:38)
[2023-03-10] MEDS ORDERED: fentaNYL 100 MCG/2 ML SDV ONE ×2 (07:39→08:33)
[2023-03-10] MEDS ORDERED: Propofol 200 MG/20 ML SDV ONE (07:39)
[2023-03-10] MEDS ORDERED: Atropine 1 MG/ML SDV ONE (07:40)
[2023-03-10] MEDS ORDERED: propofoL 150 ML ONE (07:41)
[2023-03-10] MEDS ORDERED: Bupivacaine 0.25% 30 ML SDV ONE (07:42)
[2023-03-10] MEDS ORDERED: propofoL 50 ML ONE (09:07)
[2023-03-10] MEDS ORDERED: Ondansetron 4 MG/2 ML SDV ONE (09:44)
[2023-03-10 13:23] VITALS: BP 137/88; PULSE 89
== END 2023-03-10 11:55 | disposition home or self-care (01) ==
LOC: MW.SDS 06:06
PROVIDERS: ATTEND Surgery
DX: K80.10 Calculus of gallbladder with chronic cholecystitis without obstruction (principal); K82.8 Other specified diseases of gallbladder; F41.8 Other specified anxiety disorders; F41.1 Generalized anxiety disorder; J45.909 Unspecified asthma, uncomplicated; Z88.0 Allergy status to penicillin; Z98.890 Other specified postprocedural states; Z79.899 Other long term (current) drug therapy
CPT/HCPCS: 47562; 81025; A9270; J0461; J1100; J1885; J2405; J2704; J2795; J3010; J3490; J7120

== ENCOUNTER 2024-11-18 12:06 | Inpatient (IN) | payer BC ==
[2024-11-18 12:43] LABS: APPEARANCE,URINE CLEAR; COLOR,URINE YELLOW; GLUCOSE,URINE NEGATIVE (NEGATIVE); KETONES,URINE >=80 mg/dL (NEGATIVE); LEUKOCYTE ESTERASE,URINE NEGATIVE (NEGATIVE); NITRITE,URINE NEGATIVE (NEGATIVE); OCCULT BLOOD,URINE NEGATIVE (NEGATIVE); PROTEIN,URINE 30 mg/dL (NEGATIVE); UROBILINOGEN,URINE 0.2 EU/dL (<2.0)
[2024-11-18 12:46] LABS: BILIRUBIN,URINE SMALL (NEGATIVE)
[2024-11-18] MEDS ORDERED: Sodium Chloride 0.9% 2.5 ML Syringe FLUSH PRN (13:03)
[2024-11-18] MEDS ORDERED: Sodium Chloride 0.9% 20 ML SDV IV PRN (13:03)
[2024-11-18] MEDS ORDERED: Sodium Chloride 0.9% 10 ML Syringe FLUSH PRN (13:03)
[2024-11-18] MEDS: Lactated Ringers 1,000 ML IV ONE (14:00)
[2024-11-18] MEDS: Ondansetron 4 MG/2 ML SDV IVPUSH PRN (14:09)
[2024-11-18] MEDS: Loperamide 2 MG Cap PO PRN (14:09)
[2024-11-18 14:10] LABS: HEMATOCRIT 42.1 % (37.0-47.0); HEMOGLOBIN 14.9 g/dL (12.0-16.0); MEAN CORPUSCULAR HEMOGLOBIN 32.7 pg (28.0-32.0); MEAN CORPUSCULAR HGB CONC 35.4 g/dL (32.0-36.0); MEAN CORPUSCULAR VOLUME 92.5 fL (83.0-99.0); MEAN PLATELET VOLUME 11.4 fL (9.4-12.3); PLATELET COUNT,PLT 217 K/uL (150-400); RED BLOOD CELL COUNT 4.55 M/uL (4.10-5.30)
[2024-11-18 14:46] LABS: CORONAVIRUS COVID-19 NAA NEGATIVE (NEGATIVE); INFLUENZA A NAA NEGATIVE (NEGATIVE); INFLUENZA B NAA NEGATIVE (NEGATIVE); RESPIRATORY SYNCYTIAL VIR NAA NEGATIVE (NEGATIVE)
[2024-11-18 15:33] LABS: A/G RATIO 0.8 (0.9-1.6); ALBUMIN 2.9 g/dL (3.4-5.0); BILIRUBIN TOTAL 0.9 mg/dL (0.2-1.0); CALCIUM 8.8 mg/dL (8.5-10.1); CARBON DIOXIDE,CO2 20.3 mmol/L (21.0-32.0); CREATININE 0.7 mg/dL (0.6-1.0); EST CRCL DRUG DOSING (CG) 112.01 mL/min; PROTEIN TOTAL,TP 6.7 g/dL (6.4-8.2)
[2024-11-18] MEDS: Betamethasone Acetate/Betamethasone Sod Phosphate 6 MG/1 ML MDV IM ONE (15:53)
[2024-11-18 16:01] LABS: PROTEIN,URINE RANDOM 84.6 mg/dL (<11.9)
[2024-11-18 16:02] LABS: CREATININE,URINE RAND 310.9 mg/dL; PROTEIN CREATININE RATIO,URINE 0.3
[2024-11-18] MEDS ORDERED: Butorphanol 2 MG/ML SDV IVPUSH PRN (16:48)
[2024-11-18] MEDS ORDERED: Docusate Sodium 100 MG Cap PO PRN (16:48)
[2024-11-18] MEDS ORDERED: Nalbuphine 10 MG/1 ML Vial IVPUSH PRN (16:48)
[2024-11-18] MEDS ORDERED: Misoprostol 200 MCG Tab RECTAL PRN (16:48)
[2024-11-18] MEDS ORDERED: Lanolin 100% Cream 7 GM Tube TOP PRN (16:48)
[2024-11-18] MEDS ORDERED: Lidocaine 1% 50 ML MDV INJECT PRN (16:48)
[2024-11-18] MEDS ORDERED: Water For Irrigation,Sterile 1,000 ML Container IRR PRN (16:48)
[2024-11-18] MEDS ORDERED: diphenhydrAMINE 50 MG Cap PO PRN (16:48)
[2024-11-18] MEDS ORDERED: Tranexamic Acid in NACL,ISO-OS 1,000 MG in Premix Bag 1 BAG IV PRN (16:48)
[2024-11-18] MEDS ORDERED: Oxytocin/0.9 % Sodium Chloride 30 UNIT/500 ML BAG IV SCH (17:00)
[2024-11-18] MEDS ORDERED: Lactated Ringers 1,000 ML IV SCH (17:00)
[2024-11-18] MEDS ORDERED: dexmedeTOMIDine HCl 200 MCG/2 ML SDV ONE (17:09)
[2024-11-18] MEDS: Ropivacaine HCl/PF 200 ML ONE (17:10)
[2024-11-18] MEDS ORDERED: Phenylephrine HCl In 0.9% NaCl 1 MG/10 ML Syringe IVPUSH PRN (17:17)
[2024-11-18] MEDS ORDERED: ePHEDrine 50 MG/ML SDV IVPUSH PRN (17:17)
[2024-11-18] MEDS ORDERED: dexmedeTOMIDine HCl 200 MCG/2 ML SDV EPIDUR SCH (17:30)
[2024-11-18] MEDS ORDERED: Ropivacaine HCl/PF 400 MG in Premix Bag 1 BAG EPIDUR SCH (17:30)
[2024-11-18] MEDS: Oxytocin/0.9 % Sodium Chloride 30 UNIT/500 ML BAG IV SCH ×2 (17:50→22:31)
[2024-11-18] MEDS: Promethazine 25 MG/ML SDV IM PRN (18:32)
[2024-11-18] MEDS: Phenylephrine HCl In 0.9% NaCl 1 MG/10 ML Syringe ONE (20:58)
[2024-11-18] MEDS: Sodium Chloride 0.9% 1,000 ML SCH (21:13)
[2024-11-19 06:48] LABS: HEMOGLOBIN 11.4 g/dL (12.0-16.0); MEAN CORPUSCULAR HEMOGLOBIN 31.9 pg (28.0-32.0); MEAN CORPUSCULAR HGB CONC 34.5 g/dL (32.0-36.0); MEAN CORPUSCULAR VOLUME 92.4 fL (83.0-99.0); MEAN PLATELET VOLUME 10.8 fL (9.4-12.3); PLATELET COUNT,PLT 169 K/uL (150-400); RED BLOOD CELL COUNT 3.57 M/uL (4.10-5.30); WHITE BLOOD CELL COUNT,WBC 9.77 K/uL (3.9-11.3)
[2024-11-19] MEDS: Prenatal Multivitamin with Calcium/Folic Acid/Iron Tab PO SCH (09:04)
[2024-11-19] MEDS: Ibuprofen 800 MG Tab PO PRN (09:04)
[2024-11-19] MEDS: Ferrous Sulfate 325 MG Tab PO SCH (09:04)
[2024-11-19] MEDS: Benzocaine/Menthol 20%-0.5% Spray 78 GM Cannister TOP PRN (09:15)
[2024-11-19] MEDS: Witch Hazel Medicated Pads 40/Jar TOP PRN (09:15)
[2024-11-19] MEDS: Acetaminophen 500 MG Tab PO PRN (12:55)
[2024-11-19] MEDS ORDERED: Betamethasone Acetate/Betamethasone Sod Phosphate 6 MG/1 ML MDV IM ONE (14:52)
[2024-11-20 16:04] VITALS: BP 138/88; PULSE 65
== END 2024-11-20 18:13 | disposition still patient (30) | DRG 560 ==
LOC: MW.OB 12:06 → MW.OBCHECK 12:06 → MW.OB 14:45 → OBSVTOIN 22:29 → MW.OB 11-19 01:39
PROVIDERS: ADMIT Obstetrics & Gynecology; ATTEND Obstetrics & Gynecology
PROC: 10E0XZZ Delivery of Products of Conception, External Approach (ICD-10-PCS; principal; 2024-11-18)
PROC: 3E0R3BZ Introduction of Anesthetic Agent into Spinal Canal, Percutaneous Approach (ICD-10-PCS; 2024-11-18)
PROC: 00HU33Z Insertion of Infusion Device into Spinal Canal, Percutaneous Approach (ICD-10-PCS; 2024-11-18)
PROC: 10H07YZ Insertion of Other Device into Products of Conception, Via Natural or Artificial Opening (ICD-10-PCS; 2024-11-18)
DX: O14.04 Mild to moderate pre-eclampsia, complicating childbirth (principal); Z37.0 Single live birth; O10.92 Unspecified pre-existing hypertension complicating childbirth; O99.52 Diseases of the respiratory system complicating childbirth; J45.909 Unspecified asthma, uncomplicated; O99.62 Diseases of the digestive system complicating childbirth; K52.9 Noninfective gastroenteritis and colitis, unspecified; E86.0 Dehydration; O99.284 Endocrine, nutritional and metabolic diseases complicating childbirth; O42.913 Preterm premature rupture of membranes, unspecified as to length of time between rupture and onset of labor, third trimester; Z3A.36 36 weeks gestation of pregnancy; Z88.0 Allergy status to penicillin; Q79.60 Ehlers-Danlos syndrome, unspecified; O90.81 Anemia of the puerperium; D62 Acute posthemorrhagic anemia
CPT/HCPCS: 01967; 0241U; 36415; 51702; 59025; 59409; 80053; 81003; 82570; 83615; 84156; 85027; 86592; 86850; 86900; 86901; A9270-GY; J0702; J2371; J2405; J2550; J2590; J2795; J7030; J7120